=== PATIENT | female | born 1945 | race Caucasian/White ===

== ENCOUNTER 2016-11-30 17:37 | Emergency (ER) | payer OTHER, MEDICARE ==
[~2016-11-30] VITALS: Ht 162.6 cm; Wt 89.0 kg
[2016-11-30 18:19] LABS: HEMATOCRIT 39.2 % (36.0-46.0); MCH 30.3 PG (29.0-34.0); MCHC 33.7 G/DL (30.0-36.0); MCV 90.1 FL (83-99); MEAN PLAT.VOLUME 10.1 uM^3 (9.5-12.4); PLATELET COUNT 259 K/uL (156-360); RBC DIS.WIDTH-CV 11.9 % (11.8-14.6); RBC DIS.WIDTH-SD 39.1 % (39-53); RED BLOOD COUNT 4.35 M/uL (3.80-5.20); WHITE BLOOD COUNT 13.7 K/uL (4.1-10.2)
[2016-11-30 18:27] LABS: CHLORIDE 108 mEq/L (99-109); POTASSIUM 3.7 mEq/L (3.7-5.4); SODIUM 140 mEq/L (136-147)
[2016-11-30 18:29] LABS: GLUCOSE 99 mg/dL (70-99)
[2016-11-30 18:30] LABS: ANION GAP 11 MEQ/L (2-14)
[2016-11-30 18:31] LABS: TOTAL BILIRUBIN 0.4 mg/dL (0.0-1.0)
[2016-11-30 18:33] LABS: ALKALINE PHOSPHATASE 83 IU/L (3-129); GFR ESTIMATE (CALCULATED) > 59 mL/min/
[2016-11-30 18:34] LABS: UREA NITROGEN (BUN) 16 mg/dL (9-23)
[2016-11-30 18:36] LABS: LIPASE 42 U/L (1.0-51.0)
[2016-11-30 22:38] LABS: ADD MIUA? YES; BILIRUBIN NEGATIVE; BLOOD SMALL; COLOR STRAW ((YELLOW)); GLUCOSE (STRIP) NEGATIVE; KETONES NEGATIVE; LEUKOCYTES TRACE; NITRITE NEGATIVE; PROTEIN (STRIP) NEGATIVE; SPECIFIC GRAVITY 1.029 (1.000-1.030); UROBILINOGEN 0.2 MG/DL (0.2-1.0)
[2016-11-30 22:53] LABS: BACTERIA NONE SEEN /HPF; EPITHELIAL CELLS RARE /HPF; MUCUS TRACE /LPF; RED BLOOD CELLS 0-5 /HPF (0-5); UCUL ADDED? NO; WHITE BLOOD CELLS 0-5 /HPF (0-5)
[2016-11-30] MEDS ORDERED: OMEPRAZOLE40 M1 PO (23:04)
[2016-11-30 23:09] VITALS: BP 164/88
== END 2016-11-30 23:30 | disposition home or self-care (01) ==
LOC: EME 17:37
DX: R10.9 Unspecified abdominal pain (principal); I10 Essential (primary) hypertension; Z88.6 Allergy status to analgesic agent; Z87.891 Personal history of nicotine dependence
CPT/HCPCS: 74177; 80053; 81003; 83690; 85027; 99281; 99285; J7030

== ENCOUNTER 2017-03-09 23:49 | Emergency (ER) | payer OTHER, MEDICARE ==
[~2017-03-09] VITALS: Ht 165.1 cm; Wt 91.4 kg
[~2017-03-09 23:49] MED LIST: OMEPRAZOLE40 M1 PO
[2017-03-10] MEDS ORDERED: PREDNISONE50 MG PO ×2 (00:42→01:00)
[2017-03-10] MEDS ORDERED: CHILDREN'S CLARI5 MG PO (00:42)
[2017-03-10] MEDS ORDERED: TESSALON PERLE100 MG PO ×2 (00:43→01:00)
[2017-03-10] MEDS ORDERED: LITHIUM CARBON450 MG PO (00:57)
[2017-03-10] MEDS ORDERED: FLUTICASONE PRO16 GM BOTH NARES (00:57)
[2017-03-10] MEDS ORDERED: CLARITIN5 MG PO (01:00)
[2017-03-10 01:07] VITALS: BP 145/82
== END 2017-03-10 01:08 | disposition home or self-care (01) ==
LOC: EME 23:49
DX: J30.9 Allergic rhinitis, unspecified (principal); R05 Cough; I10 Essential (primary) hypertension; Y93.84 Activity, sleeping; Z88.5 Allergy status to narcotic agent; Z87.891 Personal history of nicotine dependence
CPT/HCPCS: 70360; 99281; 99284; J7512

== ENCOUNTER 2017-11-01 17:18 | Emergency (ER) | payer OTHER, MEDICARE ==
[~2017-11-01] VITALS: Ht 165.1 cm; Wt 81.4 kg
[~2017-11-01 17:18] MED LIST changes: +CHILDREN'S CLARI5 MG PO; +CLARITIN5 MG PO; +FLUTICASONE PRO16 GM BOTH NARES; +LITHIUM CARBON450 MG PO; +PREDNISONE50 MG PO; +TESSALON PERLE100 MG PO
[2017-11-01 17:44] LABS: BASOPHIL (%) 0.2 % (0-1); EOSINOPHIL (%) 2.9 % (0-5); EOSINOPHIL COUNT 0.4 K/uL (0-0.3); HEMATOCRIT 36.5 % (36.0-46.0); HEMOGLOBIN 12.4 G/DL (11.9-15.5); IMMATURE GRANULOCYTE (%) 1.1 % (0.0-0.7); LYMPHOCYTE (%) 23.3 % (15-42); LYMPHOCYTE COUNT 3.1 K/uL (1.0-2.8); MCH 31.1 PG (29.0-34.0); MCV 91.5 FL (83-99); MONOCYTE (%) 6.1 % (3-12); MONOCYTE COUNT 0.8 K/uL (0-0.8); NEUTROPHIL (%) 66.4 % (45-76); NEUTROPHIL COUNT 8.9 K/uL (1.8-6.4); PLATELET COUNT 258 K/uL (156-360); RBC DIS.WIDTH-CV 12.9 % (11.8-14.6); RBC DIS.WIDTH-SD 43.2 % (39-53); RED BLOOD COUNT 3.99 M/uL (3.80-5.20); WHITE BLOOD COUNT 13.5 K/uL (4.1-10.2)
[2017-11-01 17:52] LABS: AMYLASE 98 IU/L (1-118); CHLORIDE 106 mEq/L (99-109); POTASSIUM 3.9 mEq/L (3.7-5.4); SODIUM 138 mEq/L (136-147)
[2017-11-01 17:54] LABS: GLUCOSE 104 mg/dL (70-99)
[2017-11-01 17:56] LABS: SERUM ETHYL ALCOHOL < 10 mg/dL
[2017-11-01 17:57] LABS: CREATININE 0.8 mg/dL (0.6-1.3); GFR ESTIMATE (CALCULATED) > 59 mL/min/
[2017-11-01 17:58] LABS: UREA NITROGEN (BUN) 15 mg/dL (9-23)
[2017-11-01 18:00] LABS: LIPASE 95 U/L (1.0-51.0)
[2017-11-01 18:12] LABS: APPEARANCE CLEAR ((CLEAR)); BILIRUBIN NEGATIVE; BLOOD SMALL; COLOR STRAW ((YELLOW)); GLUCOSE (STRIP) NEGATIVE; KETONES NEGATIVE; LEUKOCYTES NEGATIVE; NITRITE NEGATIVE; PROTEIN (STRIP) NEGATIVE; SPECIFIC GRAVITY 1.003 (1.000-1.030); UROBILINOGEN 0.2 MG/DL (0.2-1.0)
[2017-11-01 18:23] LABS: BACTERIA RARE /HPF; EPITHELIAL CELLS 1+ /HPF; MUCUS TRACE /LPF; RED BLOOD CELLS 0-5 /HPF (0-5); UCUL ADDED? NO; WHITE BLOOD CELLS 0-5 /HPF (0-5)
[2017-11-01 18:43] LABS: AMPHETAMINE NEGATIVE (500 ng/mL); BARBITURATES NEGATIVE (200 ng/mL); BENZODIAZEPINES NEGATIVE (150 ng/mL); BUPRENORPHINE NEGATIVE (10 ng/mL); COCAINE NEGATIVE (150 ng/mL); METHADONE NEGATIVE (200 ng/mL); METHAMPHETAMINE NEGATIVE (500 ng/mL); OPIATES (MORPHINE) NEGATIVE (100 ng/mL); OXYCODONE NEGATIVE (100 ng/mL); PHENCYCLIDINE NEGATIVE (25 ng/mL); PROPOXYPHENE NEGATIVE (300 ng/mL); THC CANNABINOIDS NEGATIVE (50 ng/mL); TRICYCLIC ANTIDEPRESSANTS NEGATIVE (300 ng/mL)
[2017-11-01 22:11] VITALS: BP 158/88
== END 2017-11-01 22:15 | disposition home or self-care (01) ==
LOC: TRA 17:18
PROVIDERS: Emergency Medicine
DX: R41.82 Altered mental status, unspecified (principal); S00.512A Abrasion of oral cavity, initial encounter; V47.0XXA Car driver injured in collision with fixed or stationary object in nontraffic accident, initial encounter; Y92.410 Unspecified street and highway as the place of occurrence of the external cause; I10 Essential (primary) hypertension; Z87.891 Personal history of nicotine dependence
CPT/HCPCS: 70450; 71045; 71260; 74177; 80048; 80178; 81003; 82150; 83690; 85025; 86850; 86900; 86901; 93005; 99281; 99285; G0480

== ENCOUNTER 2017-11-24 09:35 | Emergency (ER) | payer OTHER, MEDICARE ==
[~2017-11-24] VITALS: Ht 170.2 cm; Wt 86.8 kg
[2017-11-24] MEDS ORDERED: TYLENOL WITH C1 EACH PO (11:23)
[2017-11-24 12:08] VITALS: BP 126/65
== END 2017-11-24 12:10 | disposition home or self-care (01) ==
LOC: EME 09:35
DX: S70.12XA Contusion of left thigh, initial encounter (principal); W01.0XXA Fall on same level from slipping, tripping and stumbling without subsequent striking against object, initial encounter; Z87.891 Personal history of nicotine dependence
CPT/HCPCS: 73502; 99281; 99284